=== PATIENT | male | born 1995 | race Caucasian/White ===

== ENCOUNTER 2024-02-02 04:51 | Emergency (ER) | payer OTHER, SELFPAY ==
[2024-02-02 05:00] VITALS: BP 128/92; PULSE 89; RESP 18; TEMP 36.6; O2SAT 98; BMI 32.9
--- NOTE | 2024-02-02 05:09 | ED_ITS ---
HPI - General Adult General Chief complaint: Nausea/Vomiting Stated complaint: food poisoning Time Seen by Provider: 02/02/24 05:03 History of Present Illness HPI narrative: Over the last 3 hours, pt reports having large liquid stools Q 5 minutes and vomiting. States he feels dizzy, weak, and bloated. Burning pain in abdomen. Concerns for food poisoning. Had sushi at dinner and ate a piece that didn't look right. 28-year-old young man presenting to the emergency department with extremely frequent vomiting and diarrhea and increasing burning pain in his abdomen. Has been going on about 3 hours. Woke knowing something was not right and had to get to the bathroom. No melena, hematochezia or hematemesis. He is feeling lightheaded generally weak. Did have lobster bisque yesterday evening as reported by his mother accompanies him here and he thought something might not be right with 1 of the pieces of meat. Daughter had a couple episodes of vomiting he just attributed to swallowing like water 2 days prior. Has not had a fever. No rashes. No other exposures noted. Is home on leave from the from . Related Data Home Medications ?Medication ?Instructions ?Recorded ?Confirmed No Known Home Medications 02/02/24 02/02/24 Allergies Allergy/AdvReac Type Severity Reaction Status Date / Time No Known Drug Allergies Allergy Verified 02/02/24 05:03 Review of Systems Status of ROS: Reports: 6 or more systems reviewed and unremarkable except as noted in History and below [facility] Social History Smoking Status: Never smoker Do you use any of these nicotine containing products: None Second hand tobacco smoke exposure: No How often do you have a drink containing alcohol: never AUDIT-C Alcohol total score: 0 Non-prescribed substance use: denies use service: No Exam Narrative: Exam Narrative: I hear him retching in the bathroom. Returns to the room. Well muscled. Extensive tattooing over the right arm. Appears fatigued. Engages easily in conversation. Breathing easily. Abdomen is soft. Normal bowel sounds. Not particularly tender. Const: Vital Signs, click to edit/add: Vital Signs - 24 hr 02/02/24 05:00 Temperature 98 F Pulse Rate [Pulse Oximeter] 89 Respiratory Rate 18 Blood Pressure [Ri ght Upper Arm] 128/92 H Pulse Oximetry 98 Oxygen Delivery Me thod Room Air Documenting provider has reviewed patient's vital signs: yes Course Vital Signs Vital signs: Initial Vital Signs Temperature 98 F 02/02/24 05:00 Temperature Source Temporal Artery Scan 02/02/24 05:00 Pulse Rate 89 02/02/24 05:00 Pulse Rhythm Regular 02/02/24 05:00 Pulse Strength 3+ Normal 02/02/24 05:00 Respiratory Rate 18 02/02/24 05:00 Blood Pressure 128/92 H 02/02/24 05:00 Blood Pressure Mean 104 02/02/24 05:00 Blood Pressure Position Semi-Fowlers 02/02/24 05:00 Pulse Oximetry 98 02/02/24 05:00 Oxygen Delivery Method Room Air 02/02/24 05:00 Vital Signs Temperature 98 F 02/02/24 05:00 Pulse Rate 89 02/02/24 05:00 Respiratory Rate 18 02/02/24 05:00 Blood Pressure 128/92 H 02/02/24 05:00 Pulse Oximetry 98 02/02/24 05:00 Oxygen Delivery Method Room Air 02/02/24 05:00 Temperature 98 F 02/02/24 05:00 Pulse Rate 89 02/02/24 05:00 Respiratory Rate 18 02/02/24 05:00 Blood Pressure 128/92 H 02/02/24 05:00 Pulse Oximetry 98 02/02/24 05:00 Oxygen Delivery Method Room Air 02/02/24 05:00 Medications Administered Medications: Discontinued Medications Generic Name Dose Route Start Last Admin Trade Name Freq PRN Reason Stop Dose Admin Sodium Chloride 1,000 mls @ 1,000 mls/hr 02/02/24 05:21 02/02/24 06:42 0.9 % Sodium Chloride 1000 Ml IV 02/02/24 06:20 Infused .Q1H ONE Infusion Lactated Ringer's 1,000 mls @ 1,000 mls/hr 02/02/24 06:38 02/02/24 07:51 Lactated Ringers 1000 Ml IV 02/02/24 07:37 Infused .Q1H ONE Infusion Lidocaine/Aluminum/Magnesium/Simeth 30 ml 02/02/24 06:31 02/02/24 06:41 Gi Cocktail (Visc Lido/Antacid) 30 Ml PO 02/02/24 06:32 30 ml ONCE ONE Administration Ondansetron HCl 4 mg 02/02/24 05:21 02/02/24 05:25 Ondansetron 2 Mg/Ml Inj IVP 02/02/24 05:22 4 mg ONCE ONE Administration Medical Decision Making MDM Narrative Medical decision making narrative: Likely infectious etiology. Possible food ingestion. Will hydrate. Check chemistries. Check for COVID. IV was established. Given Zofran and a L normal saline. Continue then to L of LR. With burning pain did give GI cocktail. Sounds as though has managed to keep this down. Pending reassessment. Labs are reassuring. Is feeling better and feels he can leave. Has managed to keep down little oral intake of liquid. See patient discharge plan for further discussion Lab Data Lab results reviewed: Yes I reviewed the patient's lab results Labs: Lab Results 02/02/24 Range/Units 05:25 Sodium 139 (135-149) mmol/L Potassium 3.7 (3.6-5.1) mmol/L Chloride 100 (96-114) mmol/L Carbon Dioxide 26 (20-32) mmol/L Anion Gap 13 (7-15) mEq/L BUN 24 (5-24) mg/dL Creatinine 1.1 (0.5-1.5) mg/dL Estimated Creat Clear 105.08 Estimated GFR 95 ml/min Glucose 148 H (60-115) mg/dL Calcium 9.7 (8.4-10.6) mg/dL SARS-CoV-2 (PCR) Negative SARS-CoV-2 (Negative) Influenza Type A (PCR) Negative PCR FLU A (Negative) Influenza Type B (PCR) Negative PCR FLU B (Negative) Discharge Plan Discharge Clinical Impression: Vomiting, Diarrhea, Gastritis Patient Disposition: Home w/ Parent or Adult Condition: Improved Additional Instructions: Focus on hydration. Like your momma says, smaller frequent amounts. Slow advance of diet over the next 24 - 36 hours. Diluted juices, soup broth, crackers, rice, toast. As long as not experiencing fever or having blood in your stool you might be able to use loperamide to slow up your diarrhea. Zofran from [facility] for nausea . Prescriptions: No Action No Known Home Medications Follow Up/Referrals: Provider,Not a Local [Primary Care Provider] - Stand Alone Forms: [employer] Info Instructions
[2024-02-02] MEDS: ONDANSETRON 2 MG/ML inj 4 MG IVP (05:25)
[2024-02-02] MEDS: 0.9 % SODIUM CHLORIDE 1000 ml 1,000 ML IV (05:25)
[2024-02-02 05:46] LABS: Chloride* 100 mmol/L (96-114); Potassium* 3.7 mmol/L (3.6-5.1); Sodium* 139 mmol/L (135-149)
[2024-02-02 05:49] LABS: Anion Gap 13 mEq/L (7-15); Blood Urea Nitrogen* 24 mg/dL (5-24); Carbon Dioxide* 26 mmol/L (20-32); Creatinine* 1.1 mg/dL (0.5-1.5); Est. Creatinine Clearance* 105.08; Estimated Glomerular Filt Rate 95 ml/min; Glucose* 148 mg/dL (60-115)
[2024-02-02 05:50] LABS: Calcium* 9.7 mg/dL (8.4-10.6)
[2024-02-02 06:14] LABS: PCR FLU A Negative PCR FLU A (Negative); PCR FLU B Negative PCR FLU B (Negative); SARS PCR* Negative SARS-CoV-2 (Negative)
[2024-02-02] MEDS: GI COCKTAIL (VISC LIDO/ANTACID) 30 ML PO (06:41)
[2024-02-02] MEDS: LACTATED RINGERS 1000 ML 1,000 ML IV (06:47)
== END 2024-02-02 08:20 | disposition home or self-care (01) ==
PROVIDERS: Emergency Provider Family Medicine
DX: K29.70 Gastritis, unspecified, without bleeding (principal)
CPT/HCPCS: 36415; 80048; 87631; 96374; 99283; 99284; A9270; J2405; J7030; J7120